=== PATIENT | female | born 1970 | race Caucasian/White ===

== ENCOUNTER 2017-07-26 13:44 | Outpatient (CLI) | payer OTHER ==
--- NOTE | 2017-07-27 12:00 | MMO ---
BILATERAL SCREENING MAMMOGRAM: Comparison: 15, 20-14, 05-31-12, 04-21-11 History: Annual screening exam. FINDINGS: This study is interpreted with the assistance of computer aided detection. Scattered fibroglandular changes of both breasts are present. There is asymmetric density which is in the upper and probably more central portion of the breast. There are no suspicious calcifications or other signs of malignancy. IMPRESSION: BIRADS category 0 - incomplete assessment. Further imaging required. In this case, focal spot views o f the area marked within the right breast to be followed by ultrasound if needed. POS: [facility]
== END 2017-07-26 13:45 | disposition home or self-care (01) ==
LOC: SCSMAMMO 13:44
PROVIDERS: ATTEND Obstetrics & Gynecology
DX: Z12.31 Encounter for screening mammogram for malignant neoplasm of breast (principal)
CPT/HCPCS: 77067

== ENCOUNTER 2017-08-19 14:14 | Outpatient (CLI) | payer OTHER | END 2017-08-19 14:15 | disposition home or self-care (01) | LOC: BICMAMMO 14:14 | PROVIDERS: ATTEND Family Medicine | DX: R92.2 Inconclusive mammogram (principal) | CPT/HCPCS: G0279 ==

== ENCOUNTER 2018-01-19 08:30 | Inpatient (IN) | payer OTHER ==
[2018-01-19 09:10] VITALS: BMI 36.3
[2018-01-31] MEDS ORDERED: Midazolam HCl 2 mg/2 ml Vial ONE (07:22)
[2018-01-31] MEDS ORDERED: Fentanyl 100 MCG/2 ML VIAL ONE ×3 (07:22→12:22)
[2018-01-31] MEDS ORDERED: CEFAZOLIN/Water 2 GM/20 ML SYRINGE ONE (07:25)
[2018-01-31] MEDS ORDERED: Fentanyl 100 MCG/2 ML VIAL IV PRN (08:17)
[2018-01-31] MEDS ORDERED: Promethazine HCl 25 MG/ML VIAL IM PRN ×3 (08:17→09:48)
[2018-01-31] MEDS ORDERED: Zolpidem Tartrate 5 MG TAB PO PRN ×2 (08:17→08:49)
[2018-01-31] MEDS ORDERED: HYDROcodone/Acetaminophen 10/325 mg Tablet PO PRN (08:17)
[2018-01-31] MEDS ORDERED: Ondansetron HCl/PF 4 MG/2 ML Vial IVP PRN ×3 (08:17→09:48)
[2018-01-31] MEDS ORDERED: traMADol HCl 50 MG TAB PO PRN ×2 (08:17)
[2018-01-31] MEDS ORDERED: diphenhydrAMINE 25 MG CAP PO PRN (08:49)
[2018-01-31] MEDS ORDERED: Acetaminophen 325 MG TAB PO PRN (08:49)
[2018-01-31] MEDS ORDERED: Fentanyl 100 MCG/2 ML VIAL SLOW IVP PRN (08:49)
[2018-01-31] MEDS ORDERED: Acetaminophen ER (8hr) 650 MG TAB PO PRN (08:51)
[2018-01-31] MEDS ORDERED: Non-Formulary Item 1 EACH (Multivitamin [Multi-Vitamin Daily] 1 TABLET) PO SCH (09:00)
[2018-01-31] MEDS ORDERED: Sodium Chloride 0.9% 100 ML ONE (09:14)
[2018-01-31] MEDS ORDERED: Vancomycin HCl 1.5 GM in Sodium Chloride 0.9% 250 ML 300 ML IVPB SCH (09:30)
[2018-01-31] MEDS ORDERED: Promethazine HCl 25 MG/ML VIAL SLOW IVP PRN (09:48)
[2018-01-31] MEDS ORDERED: Bupivacaine 0.25% HCL 30 ML VIAL ONE (10:06)
[2018-01-31] MEDS ORDERED: Ropivacaine 0.5% HCl/PF (150 MG/30 ML VIAL) ONE (10:06)
[2018-01-31] MEDS ORDERED: Meperidine HCl/PF 25 MG/ML VIAL ONE (11:09)
[2018-01-31] MEDS ORDERED: Morphine 4 MG/ML VIAL ONE (11:26)
--- NOTE | 2018-01-31 12:36 | OP ---
PREOPERATIVE DIAGNOSIS: Degenerative joint disease, right knee. POSTOPERATIVE DIAGNOSIS: Degenerative joint disease, right knee. SURGEON: Sam Diaz M.D. ELECTRONIC SECURITY SPECIALIST: Pan. BLOOD LOSS: Minimal. SPECIMEN: None. DRAINS: None. COMPLICATIONS: None. TOURNIQUET TIME: 60 minutes. TITLE OF PROCEDURE: Right total knee arthroplasty using a [place] Triathlon 5 femur, 5 tibia, 9 mm C S X3 polyethylene, and A29 patella. PROCEDURE IN DETAIL: After informed consent was obtained in the preoperative holding area. The tamanna ent was taken to the operative suite where general anesthesia was induced. Once adequate level of ge neral anesthesia was obtained, the patient was positioned and a well-padded tourniquet was placed shana und the right proximal thigh. The right lower extremity was then prepped and draped in the usual saad rile fashion. Prior to exsanguination, a time out was called and all members of the surgical team ag pipo upon site, surgeon, and patient. The extremity was then exsanguinated and the tourniquet was ra ised. A midline longitudinal incision was then made directly over the patella extending two fingerbr eadths above the superior pole of the patella and two fingerbreadths inferior to the inferior patella r pole of the patella. Deeper subcutaneous layers were dissected sharply and local bleeding was cont rolled with Bovie electrocautery. A quad tendon longitudinal split was then made sharply and a media n parapatellar arthrotomy was carried out both sharp and with Bovie electrocautery, carried down to o ne fingerbreadth medial to the tibial tubercle. The knee was then placed into flexion and the patell a was everted nicely, and a copious fat pad ectomy was performed allowing for greater exposure of the tibia. The computer-assisted distal femoral fiducial was then placed and pinned firmly, and the dis sindy femoral cutting guide was pinned firmly into place. The oscillating saw was then used to remove the appropriate amount of bone. The 4-in-1 cutting block was then placed on the distal femur and the oscillating saw was used to remove the appropriate amount of bone off of the anterior, posterior, an d chamfer cuts. After completion of bone cuts, the anterior cruciate ligament was resected sharply a nd the posterior cruciate ligament retractor was placed and the tibia was subluxed for better exposur e. Partial meniscectomies were carried out, and the tibial computer-assisted fiducial was pinned, an d the cutting guide was placed. Oscillating saw was then used to remove the bone with Hohmann retrac tors used to take care and protect the collateral ligaments. After the tibial resection was performe d, a laminar pipe line maintenance supervisor was placed in between the freshened bone cuts. The knee placed at 90 degrees a nd further bilateral meniscectomies were carried out, and the curved osteotome and curettage was used to remove any excess bone spurs in the posterior compartment. The trial femoral component, tibial b aseplate were placed with the appropriate polyethylene trial insert with an appropriate polyethylene spacer and patellar button. The knee was taken through full range of motion with flexion and extensi on from 0-90 degrees and patellar broach squarely in the trochlea without any squinting or subluxatio n noted. The knee was also stable to varus and valgus stressing at 0, 15, 45, and 90 degrees of flex ion. The drawer was negative. All trial components were then removed and the keel punch was used to provide the appropriate defect in the tibia with a mallet. The freshened bone cuts were copiously i rrigated with pulsatile lavage of about 1-1/2 liters to remove all excess debris. The freshened bone cuts were then dried and with suction and lap sponge. The knee was placed in flexion and retractors were placed to provide access to all bone cuts. Tobramycin impregnated methyl methacrylate cement w as then placed on the freshened bone cuts and implants which were malleted firmly into place. Curett age and [place] elevators were used to remove any excess bone cement. The knee was placed into full ex tension and the patellar button was placed under compression, and the cement was allowed to cure. On ce completed, the components were again taken through full range of motion and copious irrigation of the knee was carried out with another liter of normal saline. All components were inspected fully wi th full range of motion and varus and valgus stressing. There was no laxity noted and full extension was observed clinically. Primary closure was accomplished with #2 interrupted Vicryl stitch of the arthrotomy defect. This was oversewn with a #2 running Quill barbed stitch. The gravitational plate let system was then injected into the arthrotomy prior to closure. The subcutaneous layer was then c losed with a running 0 barbed Monocryl stitch and skin closure accomplished with a running subcuticul ar 3-0 Monocryl barbed Quill stitch and augmented with cement on the skin. Tourniquet was lowered. Good spontaneous return of distal pulses was noted clinically and a sterile dressing was applied to t he incision. The procedure was terminated without any complications. The patient was awakened in th e operative suite and the tourniquet was removed, and the patient was taken to the recovery room in s table condition.
[2018-01-31] MEDS ORDERED: Ketorolac Tromethamine 30 MG/ML VIAL ONE (12:57)
[2018-01-31] MEDS ORDERED: PROPOFOL 200 MG/20 ML VIAL ONE (12:57)
[2018-01-31] MEDS ORDERED: Lidocaine 1% PF 5 ML VIAL ONE (12:57)
[2018-01-31] MEDS ORDERED: Ondansetron HCl/PF 4 MG/2 ML Vial ONE (12:57)
[2018-01-31] MEDS: Ferrous Gluconate 324 MG TAB PO SCH ×2 (13:22→20:55)
[2018-01-31] MEDS: Aspirin 81 mg Enteric Coated Tablet PO SCH ×2 (13:22→20:55)
[2018-01-31] MEDS: Multivitamin W/ Minerals 1 TAB PO SCH (13:22)
[2018-01-31] MEDS: Senokot S 8.6-50 MG TAB PO SCH ×2 (13:23→20:57)
--- NOTE | 2018-01-31 13:29 | RAD ---
POSTOPERATIVE RIGHT KNEE RADIOGRAPH SERIES 2 VIEWS: Date: 01/31/18 INDICATION: Postoperative right knee evaluation. FINDINGS: There is a right knee arthroplasty without evidence of hardware complication. Expected postprocedural findings of the regional soft tissues are seen. IMPRESSION: Postoperative right knee without acute hardware complication. POS: [facility]
[2018-01-31] MEDS: Sodium Chloride 0.9% 1,000 ML IV SCH ×2 (15:32→18:58)
[2018-01-31] MEDS: HYDROcodone/Acetaminophen 10/325 mg Tablet PO PRN ×2 (15:41→20:54)
[2018-01-31] MEDS: CEFAZOLIN/Water 2 GM/20 ML SYRINGE SLOW IVP SCH (16:21)
[2018-02-01] MEDS: CEFAZOLIN/Water 2 GM/20 ML SYRINGE SLOW IVP SCH (00:03)
[2018-02-01] MEDS: HYDROcodone/Acetaminophen 10/325 mg Tablet PO PRN ×6 (00:18→21:33)
[2018-02-01] MEDS: Bupivacaine 0.5% 50 ML in Sodium Chloride 0.9% 50 ML NERVE BLCK SCH ×2 (04:26→21:20)
--- NOTE | 2018-02-01 04:30 | CON ---
DATE OF CONSULTATION: 01/31/2018 REASON FOR CONSULTATION: Medical management. HISTORY OF PRESENT ILLNESS: This patient is a 47-year-old female who is status post knee replacement today. The patient has a history of substantial obesity, which was ultimately treated with a gastric sleeve. She subsequently lost a significant amount of weight and was able to have her degenerative joint disease of the knee addressed with total knee replacement today. Currently, the patient reports that she is doing extremely well and she has no complaints. She has no pain in the knee as the block is still present. PAST MEDICAL HISTORY: Only notable for the above-mentioned obesity, gastroesophageal reflux. PAST SURGICAL HISTORY: Gastric sleeve, BTL, left foot surgery. MEDICATIONS: The patient takes a supplement called Thrive. ALLERGIES: NSAIDs. FAMILY HISTORY: Noncontributory. SOCIAL HISTORY: Patient is , has a 22-year-old daughter with spina bifida. PHYSICAL EXAMINATION: VITAL SIGNS: BP 114/63, pulse 87, O2 saturation 96%, temperature 98.1. GENERAL APPEARANCE: Age-appropriate female. She was in no distress. She is awake, alert, oriented, pleasant, cooperative. HEENT: PERRL. No active lesions. NECK: Supple and symmetric. CARDIOVASCULAR: Regular rate and rhythm without murmurs, gallops or rubs. LUNGS: Clear to auscultation bilaterally. Good chest wall expansion. Good air exchange. ABDOMEN: Soft, flat, nontender, nondistended, positive bowel sounds. EXTREMITIES: Warm and dry with good capillary refill, no edema. LABORATORY DATA: White count 11.2, hemoglobin 13.1, platelets 368,000. BUN 10 , creatinine 0.68, glucose 80. IMPRESSION AND PLAN: 1. Postop knee replacement. We will continue with post-op pain management as necessary. 2. History of reflux. We will continue with the patient's usual home medications with PPI. We will continue to manage the patient medically, although she appears to be generally stable. I appreciate the opportunity to work this patient. JOSE CARLOS
[2018-02-01 04:47] LABS: Hemoglobin 10.9 g/dL (12.0-16.0)
[2018-02-01 04:55] LABS: Mean Corpuscular HGB CONC 32.9 g/dL (32.0-36.0); Mean Corpuscular Hemoglobin 27.7 pg (27.0-31.0); Mean Corpuscular Volume 84.2 fL (78.0-98.0); Mean Platelet Volume 7.1 fL (7.4-10.4); Platelet Count 310 thou/uL (130-400); RBC Distribution Width 12.5 % (11.5-14.5); Red Blood Cell (RBC) Count 3.94 mill/uL (4.20-5.40); White Blood Cell (WBC) Count 12.4 thou/uL (4.8-10.8)
[2018-02-01] MEDS: Sodium Chloride 0.9% 1,000 ML IV SCH ×2 (05:01→14:44)
[2018-02-01] MEDS: Aspirin 81 mg Enteric Coated Tablet PO SCH ×2 (08:24→21:02)
[2018-02-01] MEDS: Senokot S 8.6-50 MG TAB PO SCH ×2 (08:25→21:03)
[2018-02-01] MEDS: Ferrous Gluconate 324 MG TAB PO SCH ×2 (08:25→21:02)
[2018-02-01] MEDS: Multivitamin W/ Minerals 1 TAB PO SCH (08:25)
--- NOTE | 2018-02-01 09:37 | PRG ---
DATE OF SERVICE: 02/01/2018 SUBJECTIVE: Gissel is a 47-year-old female, postop day #1 from right total knee arthroplasty. She is comfortable this morning. She has no complaints. She has a little bit of amplification of discomfo rt this morning and rates it about a 7 and it is time for her [place] anyway. She is tolerating a regu lar diet. OBJECTIVE: Temperature 98.2, pulse 75, respiratory rate is 18, O2 saturation is 92% on room air, blo od pressure is 102/71. She is alert and oriented to person, place, time, and situation, appropriatel y conversant with examiner. Neurovascularly intact. She has a dense block on the right leg, but the re is no strike through at the incision. Hemoglobin and hematocrit 10.9 and 33.2. ASSESSMENT: A 47-year-old female, 1. Postoperative day #1 right total knee arthroplasty, doing well. 2. Mild postoperative asymptomatic hemorrhagic anemia. PLAN: Continue current care. Probable discharge tomorrow.
[2018-02-01] MEDS: traMADol HCl 50 MG TAB PO PRN (16:16)
[2018-02-02] MEDS: Sodium Chloride 0.9% 1,000 ML IV SCH ×2 (01:06→20:38)
[2018-02-02] MEDS: HYDROcodone/Acetaminophen 10/325 mg Tablet PO PRN ×3 (01:53→10:41)
[2018-02-02 04:53] LABS: Hemoglobin 10.8 g/dL (12.0-16.0); Mean Corpuscular HGB CONC 33.1 g/dL (32.0-36.0); Mean Corpuscular Hemoglobin 27.9 pg (27.0-31.0); Mean Corpuscular Volume 84.2 fL (78.0-98.0); Platelet Count 287 thou/uL (130-400); RBC Distribution Width 12.5 % (11.5-14.5); Red Blood Cell (RBC) Count 3.86 mill/uL (4.20-5.40); White Blood Cell (WBC) Count 11.8 thou/uL (4.8-10.8)
[2018-02-02] MEDS: Aspirin 81 mg Enteric Coated Tablet PO SCH (09:12)
[2018-02-02] MEDS: Senokot S 8.6-50 MG TAB PO SCH (09:12)
[2018-02-02] MEDS: Ferrous Gluconate 324 MG TAB PO SCH (09:12)
[2018-02-02] MEDS: Multivitamin W/ Minerals 1 TAB PO SCH (09:12)
[2018-02-02 11:43] VITALS: BP 137/83; TEMP 97.7
[2018-02-02] MEDS: traMADol HCl 50 MG TAB PO PRN (14:13)
== END 2018-02-02 14:30 | disposition home or self-care (01) | DRG 470 ==
LOC: SURG A 01-31 06:24 → SJJU 01-31 12:21
PROVIDERS: ADMIT Orthopaedic Surgery; ATTEND Orthopaedic Surgery
PROC: 0SRC0J9 Replacement of Right Knee Joint with Synthetic Substitute, Cemented, Open Approach (ICD-10-PCS; principal; 2018-01-31)
DX: M17.11 Unilateral primary osteoarthritis, right knee (principal); Z93.1 Gastrostomy status; E66.9 Obesity, unspecified; Z68.36 Body mass index [BMI] 36.0-36.9, adult; D64.9 Anemia, unspecified; K21.9 Gastro-esophageal reflux disease without esophagitis
CPT/HCPCS: 36415; 80048; 85025; 85027; 85610; 86850; 86900; 86901; A4216; C1713; C1776; G8978-GP-CL; G8979-GP-CJ; J1885; J2001; J2175; J2250; J2270; J2405; J2704; J2795; J3010; J3370; J3490; J7050; S0020

== ENCOUNTER 2018-01-19 08:52 | Outpatient (CLI) | payer OTHER ==
--- NOTE | 2018-01-19 11:15 | RAD ---
CHEST TWO VIEWS: HISTORY: Preoperative radiograph. COMPARISON: None. FINDINGS: Two views of the chest show normal sized cardiomediastinal silhouette. There is no evidence of consol idation, mass, or pleural effusion. The bones are unremarkable. IMPRESSION: No evidence of acute cardiopulmonary disease. POS: [facility]
== END 2018-01-19 08:53 | disposition home or self-care (01) ==
LOC: LABBT 08:52
PROVIDERS: ATTEND Orthopaedic Surgery
DX: Z01.818 Encounter for other preprocedural examination (principal); M17.11 Unilateral primary osteoarthritis, right knee
CPT/HCPCS: 71046; 87081; 93005; 93010

== ENCOUNTER 2018-01-30 13:30 | Outpatient (CLI) | payer OTHER ==
[2018-01-30 14:45] LABS: #Basophils 0.1 thou/uL (0.0-0.2); #Eosinphils 0.2 thou/uL (0.0-0.7); #Lymphocytes 2.9 thou/uL (1.20-3.40); #Monocytes 0.7 thou/uL (0.11-0.59); #Neutrophils 7.4 thou/uL (1.40-6.50); %Basophils 0.6 % (0.0-1.0); %Eosinophils 1.7 % (0.0-10.0); %Lymphocytes 26.1 % (21.0-51.0); %Monocytes 6.1 % (0.0-10.0); %Neutrophils 65.6 % (42.0-75.0); Hemoglobin 13.1 g/dL (12.0-16.0); Mean Corpuscular HGB CONC 32.7 g/dL (32.0-36.0); Mean Corpuscular Hemoglobin 27.4 pg (27.0-31.0); Mean Corpuscular Volume 83.9 fL (78.0-98.0); Platelet Count 368 thou/uL (130-400); RBC Distribution Width 12.4 % (11.5-14.5); Red Blood Cell (RBC) Count 4.78 mill/uL (4.20-5.40); White Blood Cell (WBC) Count 11.2 thou/uL (4.8-10.8)
[2018-01-30 14:58] LABS: Prothrombin Time 12.8 SEC (12.0-14.7)
[2018-01-30 15:04] LABS: Anion Gap 13 mmol/L (10-20); BUN (Urea Nitrogen) 10 mg/dL (7.0-18.7); Calc. Creatinine Clearance 0 mL/min (70-130); Calcium 9.4 mg/dL (7.8-10.44); Carbon Dioxide 23 mmol/L (22-29); Chloride 106 mmol/L (98-107); Estimated GFR-MDRD Greater than 90; Glucose 80 mg/dL (70-105); Potassium 4.2 mmol/L (3.5-5.1); Sodium 138 mmol/L (136-145)
== END 2018-01-30 13:31 | disposition home or self-care (01) ==
LOC: LABBT 13:30
PROVIDERS: ATTEND Orthopaedic Surgery
DX: Z01.812 Encounter for preprocedural laboratory examination (principal); M17.11 Unilateral primary osteoarthritis, right knee
CPT/HCPCS: 80048; 85025; 85610; 86850; 86900; 86901

== ENCOUNTER 2019-06-06 06:54 | Outpatient (CLI) | payer OTHER ==
[2019-06-06 15:34] LABS: #Eosinphils 0.2 thou/uL (0.0-0.7); #Lymphocytes 3.3 thou/uL (1.20-3.40); #Monocytes 0.9 thou/uL (0.11-0.59); #Neutrophils 7.5 thou/uL (1.40-6.50); %Basophils 0.4 % (0.0-1.0); %Eosinophils 1.9 % (0.0-10.0); %Lymphocytes 27.8 % (21.0-51.0); %Monocytes 7.4 % (0.0-10.0); %Neutrophils 62.5 % (42.0-75.0); Hemoglobin 14.6 g/dL (12.0-16.0); Mean Corpuscular HGB CONC 32.1 g/dL (32.0-36.0); Mean Corpuscular Hemoglobin 27.4 pg (27.0-31.0); Mean Corpuscular Volume 85.2 fL (78.0-98.0); Mean Platelet Volume 7.6 fL (7.4-10.4); Platelet Count 348 thou/uL (130-400); RBC Distribution Width 12.6 % (11.5-14.5); Red Blood Cell (RBC) Count 5.34 mill/uL (4.20-5.40)
[2019-06-06 15:43] LABS: INR-International Normal Ratio 0.9; Prothrombin Time 12.4 SEC (12.0-14.7)
[2019-06-06 15:57] LABS: Anion Gap 10 mmol/L (10-20); BUN (Urea Nitrogen) 9 mg/dL (9.8-20.1); Calc. Creatinine Clearance 0 mL/min (70-130); Calcium 9.7 mg/dL (7.8-10.44); Carbon Dioxide 28 mmol/L (22-29); Chloride 105 mmol/L (98-107); Estimated GFR-MDRD 78; Glucose 104 mg/dL (70-105); Potassium 4.1 mmol/L (3.5-5.1); Sodium 139 mmol/L (136-145)
[2019-06-06 16:10] LABS: Bacteria/HPF None Seen HPF (None Seen); Bilirubin Negative (Negative); Blood, Urine Negative (Negative); Clarity Clear (Clear); Glucose, Urine (Dipstick) Normal (Negative); Leukocyte Negative Leu/uL (Negative); Nitrite Negative (Negative); Protein, Urine (Dipstick) 10 mg/dL (Neg-Trace); Squamous Epithelial 0-3 HPF (0-3); Urobilinogen Normal mg/dL (Less than 2); WBC/HPF 0-3 HPF (0-3)
== END 2019-06-06 06:55 | disposition home or self-care (01) ==
LOC: LABBT 06:54
PROVIDERS: ATTEND Orthopaedic Surgery
DX: Z01.818 Encounter for other preprocedural examination (principal); M17.12 Unilateral primary osteoarthritis, left knee
CPT/HCPCS: 80048; 81001; 85025; 85610; 93005; 93010

== ENCOUNTER 2019-06-06 14:30 | Inpatient (IN) | payer OTHER ==
[2019-06-06 14:52] VITALS: BMI 37.1
[2019-06-12] MEDS ORDERED: Tranexamic Acid 1,000 MG/10 ML VIAL ONE (08:42)
[2019-06-12] MEDS ORDERED: Sodium Chloride 0.9% 100 ML ONE (08:42)
[2019-06-12] MEDS ORDERED: Vancomycin 1.5 GRAM/300 ML BAG 1.5 GM in Premix Bag 1 BAG IVPB SCH (09:00)
[2019-06-12] MEDS ORDERED: Midazolam HCl 2 mg/2 ml Vial ONE (09:05)
[2019-06-12] MEDS ORDERED: Fentanyl 100 MCG/2 ML VIAL ONE ×5 (09:05→14:07)
[2019-06-12] MEDS ORDERED: HYDROcodone/Acetaminophen 10/325 mg Tablet PO PRN ×2 (09:11)
[2019-06-12] MEDS ORDERED: Zolpidem Tartrate 5 MG TAB PO PRN ×2 (09:11→09:17)
[2019-06-12] MEDS ORDERED: Fentanyl 100 MCG/2 ML VIAL SLOW IVP PRN ×2 (09:11)
[2019-06-12] MEDS ORDERED: Acetaminophen 325 MG TAB PO PRN (09:11)
[2019-06-12] MEDS ORDERED: Promethazine HCl 25 MG/ML VIAL IM PRN ×3 (09:11→11:41)
[2019-06-12] MEDS ORDERED: diphenhydrAMINE 25 MG CAP PO PRN (09:11)
[2019-06-12] MEDS ORDERED: Acetaminophen ER (8hr) 650 MG TAB PO PRN (09:12)
[2019-06-12] MEDS ORDERED: HYDROcodone/Acetaminophen 5/325 mg Tablet PO PRN (09:17)
[2019-06-12] MEDS ORDERED: Ondansetron PF 4 MG/2 ML Vial IVP PRN (09:17)
[2019-06-12] MEDS ORDERED: Ropivacaine HCl/PF 250 ML in Premix Bag 1 BAG NERVE BLCK SCH (09:17)
[2019-06-12] MEDS ORDERED: traMADol HCl 50 MG TAB PO PRN ×2 (09:17)
[2019-06-12] MEDS ORDERED: Fentanyl 100 MCG/2 ML VIAL IV PRN (09:17)
[2019-06-12] MEDS ORDERED: PROPOFOL 200 MG/20 ML VIAL ONE (10:13)
[2019-06-12] MEDS ORDERED: Ondansetron PF 4 MG/2 ML Vial ONE (10:13)
[2019-06-12] MEDS ORDERED: Ropivacaine 0.2% HCl/PF (40 MG/20 ML VIAL) ONE (10:13)
[2019-06-12] MEDS ORDERED: Ropivacaine 0.5% HCl/PF (150 MG/30 ML VIAL) ONE (10:13)
[2019-06-12] MEDS ORDERED: Bupivacaine HCl 0.5%/Epinephrine 1:200,000/PF 30 ml Vial ONE (10:13)
[2019-06-12] MEDS ORDERED: Promethazine HCl 25 MG/ML VIAL SLOW IVP PRN (11:41)
[2019-06-12] MEDS ORDERED: Ondansetron HCl/PF 4 MG/2 ML Vial IVP PRN (11:41)
[2019-06-12] MEDS ORDERED: Ketorolac Tromethamine 30 MG/ML VIAL IVP SCH (12:00)
[2019-06-12] MEDS ORDERED: Acetaminophen 1,000 MG in Premix Bag 1 BAG IVPB ONE (13:15)
--- NOTE | 2019-06-12 13:42 | RAD ---
RADIOGRAPH LEFT KNEE 2 VIEWS: DATE: 06/12/2019 HISTORY: 49-year-old female with chronic left knee pain status post surgery FINDINGS: Resurfacing changes of articular surfaces of distal femur, patella, and tibial plateau. Metallic pros theses cover the resurfaced articular surfaces of distal femur and tibial plateau. Subcutaneous emphysema in the anterior soft tissues of the thigh and knee indicate recent status of surgery. IMPRESSION: Very recently status post total left knee replacement arthroplasty.
[2019-06-12] MEDS: HYDROcodone/Acetaminophen 5/325 mg Tablet PO PRN ×2 (16:16→20:03)
[2019-06-12] MEDS: Ondansetron PF 4 MG/2 ML Vial IVP PRN (17:44)
[2019-06-12] MEDS: CEFAZOLIN 2 GM in Premix Bag 1 BAG IVPB SCH (17:44)
[2019-06-12] MEDS: Sodium Chloride 0.9% 1,000 ML IV SCH ×2 (18:28→20:06)
[2019-06-12] MEDS: Aspirin 81 mg Enteric Coated Tablet PO SCH (20:02)
[2019-06-12] MEDS ORDERED: Famotidine/PF 20 mg/2ml Vial SLOW IVP SCH (21:00)
--- NOTE | 2019-06-12 23:13 | CON ---
DATE OF CONSULTATION: PRIMARY CARE PHYSICIAN: Dr. Martin Pat. REASON FOR CONSULTATION: Medical management. CHIEF COMPLAINT: Mild left knee pain. HISTORY OF PRESENT ILLNESS: Ms. Restrepo is a pleasant 49-year-old woman, who is status post a left knee replacement, who has been referred for medical management. The patient states that overall she is feeling well except for mild discomfort in the knee. She states it is tolerable. She states she has otherwise been feeling well and without any major complaints. Denies having any nausea or vomiting. No chest pain, palpitations, or shortness of breath. No headaches or dizziness. She reports having history of a gastric sleeve and states this contributes to long-standing diarrhea. Has not had a bowel movement today. Denies having any issues with blood in her stools or abdominal pain or cramping. Overall, she is feeling well and again without any complaints. PAST MEDICAL HISTORY: 1. Osteoarthritis. 2. Anxiety. 3. Varicose veins. 4. Obesity. 5. GERD. PAST SURGICAL HISTORY: 1. Cholecystectomy. 2. Gastric sleeve in 2013. 3. . 4. Foot surgery. 5. Right total knee replacement. 6. Left total knee replacement. FAMILY HISTORY: Noncontributory. SOCIAL HISTORY: The patient denies any tobacco use, alcohol consumption, or illicit drug use. ALLERGIES: NSAIDS. CURRENT MEDICATIONS: 1. Acetaminophen. 2. Nexium. 3. Multivitamin. PHYSICAL EXAMINATION: GENERAL: The patient appears well developed, well nourished, is in no acute distress. VITAL SIGNS: Temperature 98.3, pulse 80, respirations 16, O2 saturation 99% on room air, blood pressure . HEENT: Normocephalic and atraumatic. Pupils are equal, round, and reactive to light. Sclerae are without icterus. Oropharynx is clear. NECK: Supple without lymphadenopathy. LUNGS: Clear to auscultation bilaterally without any wheezes, rales, or rhonchi. CARDIAC: Regular rate and rhythm without audible murmurs, rubs, or gallops. ABDOMEN: Soft, nontender, nondistended. Normoactive bowel sounds present. EXTREMITIES: No lower leg swelling. Pedal pulses present and equal bilaterally. No evidence of edema NEUROLOGIC: Alert and oriented x3. SKIN: Without rash or jaundice. LABORATORY DATA: Obtained on June 06, 2019 as part of preoperative workup. White blood count was 12, hemoglobin 14.6, hematocrit 45.5, platelets 348, neutrophils 62.5%. Sodium 139, potassium 4.1, BUN 9, creatinine 0.78, GFR 78, calcium 9.7. Urinalysis done at that time as well showed 10 ketones, 4 to 6 red blood cells, otherwise unremarkable. IMAGING DATA: X-ray of the left knee on June 12, 2019 showed very recently status post total left knee replacement arthroplasty. IMPRESSION AND PLAN: Ms. Restrepo is a very pleasant 49-year-old woman, who is status post left total knee replacement, who has been referred for medical management of the following. 1. Gastroesophageal reflux disease. The patient is on Nexium at home, which has been continued. 2. Chronic diarrhea. The patient states it is intermittent and manageable. No diarrhea at present. 3. Deep venous thrombosis prophylaxis. Mechanical SCDs in place. 4. Code status full. Surrogate decision maker is her , Tony Restrepo. We will obtain laboratory studies to assess current renal and liver function. The patient is asymptomatic at present without any complaints. Pain is under control from left total knee replacement done earlier today. We will continue to follow this patient with you. Thank you for the consultation. Case was discussed with Dr. Coburn who agrees with plan of care as described above. Job ID: [id number]
[2019-06-13] MEDS: CEFAZOLIN 2 GM in Premix Bag 1 BAG IVPB SCH (00:42)
[2019-06-13] MEDS: HYDROcodone/Acetaminophen 5/325 mg Tablet PO PRN ×6 (00:44→21:06)
[2019-06-13 05:36] LABS: #Lymphocytes 1.7 thou/uL (1.20-3.40); #Monocytes 1.3 thou/uL (0.11-0.59); #Neutrophils 11.1 thou/uL (1.40-6.50); %Basophils 0.3 % (0.0-1.0); %Eosinophils 0.2 % (0.0-10.0); %Lymphocytes 12.2 % (21.0-51.0); %Monocytes 8.9 % (0.0-10.0); %Neutrophils 78.5 % (42.0-75.0); Hemoglobin 12.4 g/dL (12.0-16.0); Mean Corpuscular HGB CONC 32.5 g/dL (32.0-36.0); Mean Corpuscular Hemoglobin 27.4 pg (27.0-31.0); Mean Corpuscular Volume 84.4 fL (78.0-98.0); Mean Platelet Volume 7.8 fL (7.4-10.4); Platelet Count 282 thou/uL (130-400); RBC Distribution Width 12.5 % (11.5-14.5); Red Blood Cell (RBC) Count 4.53 mill/uL (4.20-5.40); White Blood Cell (WBC) Count 14.2 thou/uL (4.8-10.8)
[2019-06-13 05:38] LABS: Hemoglobin 12.4 g/dL (12.0-16.0); Mean Corpuscular HGB CONC 32.8 g/dL (32.0-36.0); Mean Corpuscular Hemoglobin 27.7 pg (27.0-31.0); Mean Corpuscular Volume 84.5 fL (78.0-98.0); Mean Platelet Volume 7.5 fL (7.4-10.4); Platelet Count 278 thou/uL (130-400); RBC Distribution Width 12.4 % (11.5-14.5); Red Blood Cell (RBC) Count 4.48 mill/uL (4.20-5.40); White Blood Cell (WBC) Count 14.6 thou/uL (4.8-10.8)
[2019-06-13] MEDS: Ondansetron PF 4 MG/2 ML Vial IVP PRN ×2 (05:43→12:54)
[2019-06-13 05:52] LABS: ALT (SGPT) 27 U/L (8-55); AST (SGOT) 30 U/L (5-34); Albumin 3.3 g/dL (3.5-5.0); Alkaline Phosphatase 96 U/L (40-110); Anion Gap 9 mmol/L (10-20); BUN (Urea Nitrogen) 4 mg/dL (9.8-20.1); Bilirubin, Total 0.6 mg/dL (0.2-1.2); Calc. Creatinine Clearance 186 mL/min (70-130); Calcium 8.2 mg/dL (7.8-10.44); Carbon Dioxide 25 mmol/L (22-29); Chloride 105 mmol/L (98-107); Estimated GFR-MDRD Greater than 90; Globulin 2.5 g/dL (2.4-3.5); Glucose 113 mg/dL (70-105); Potassium 3.6 mmol/L (3.5-5.1); Protein, Total 5.8 g/dL (6.0-8.3); Sodium 135 mmol/L (136-145)
[2019-06-13] MEDS: Sodium Chloride 0.9% 1,000 ML IV SCH ×3 (06:45→19:55)
[2019-06-13] MEDS: Ferrous Gluconate 324 MG TAB PO SCH ×2 (08:32→16:51)
[2019-06-13] MEDS: Multivitamin W/ Minerals 1 TAB PO SCH (08:33)
[2019-06-13] MEDS: Aspirin 81 mg Enteric Coated Tablet PO SCH ×2 (08:33→19:52)
[2019-06-13] MEDS: Senokot S 8.6-50 MG TAB PO SCH ×2 (08:33→19:52)
[2019-06-13] MEDS ORDERED: Non-Formulary Item 1 EACH (Multivitamin [Multi-Vitamin Daily] 1 TABLET) PO SCH (09:00)
--- NOTE | 2019-06-13 09:56 | PRG ---
DATE OF SERVICE: 06/13/2019 SUBJECTIVE: Gissel is a 49-year-old female postop day 1 from left total knee arthroplasty. This is her second arthroplasty and she is doing very well. Pain is controlled. She is requesting discharge home today. OBJECTIVE: VITAL SIGNS: Temperature 98.4, pulse 84, respiratory rate , blood pressure 144/84. GENERAL: She is alert and oriented to person, place, time, and situation. Responsive and appropriate with examiner. Grossly nonfocal. EXTREMITIES: Incision is clean. No strike through. She is neurovascularly intact in the left lower extremity. LABORATORY DATA: Hemoglobin and hematocrit of 12.4 and 37.9. IMPRESSION: 49-year-old female postop day 1 left total knee arthroplasty, doing well. This is her second joint. PLAN: 1. We will go ahead and place an On-Q pump. 2. Consider discharge to home this afternoon if she is still continuing with good progress. Job ID: [id number]
[2019-06-13] MEDS ORDERED: Ropivacaine 0.2% 550 ML 550 ML NERVE BLCK SCH (10:46)
--- NOTE | 2019-06-13 10:55 | OP ---
DATE OF PROCEDURE: 06/12/2019 Dictated by Ashok Duke PA-C, for Sam Diaz MD. PREOPERATIVE DIAGNOSIS: End-stage tricompartmental osteoarthritis, left knee with degenerative genu varum. POSTOPERATIVE DIAGNOSIS: End-stage tricompartmental osteoarthritis, left knee with degenerative genu varum. PROCEDURE: Cemented cruciate-sparing computer-assisted navigated left total knee arthroplasty. SURGEON: Sam Diaz MD. GARNETT ROOM WORKER: Ashok Duke PA-C. ANESTHESIA: General via LMA augmented with indwelling adductor canal block and single-shot sciatic block. COMPONENTS USED: [employer] Triathlon cemented size 5 cruciate-sparing femoral component with a size 5 primary cemented tibial base plate, 9 mm polyethylene fixed bearing insert, and A32 patella button. FINDINGS: End-stage severe degenerative tricompartmental disease, [id number] arthrosis, periarticular osteophyte formation, large serous effusion, hypertrophic synovium, and changes consistent with degenerative genu varum. DRAINS: None. SPECIMENS: None. COMPLICATIONS: None. COUNTS: Correct. INPUT: 1500 mL crystalloid. OUTPUT: 250 mL clear yellow urine. INDICATION FOR PROCEDURE: Gissel is a 49-year-old white female, who has had progressive left knee pain, and problems with standing and walking. She had failed conservative management for the last 5 to 7 years. She has elected to proceed with total knee arthroplasty with degenerative genu varum Job ID: [id number]
[2019-06-13] MEDS ORDERED: Ropivacaine HCl/PF 250 ML in Premix Bag 1 BAG NERVE BLCK SCH (11:45)
--- NOTE | 2019-06-13 18:14 | PDOC.HOSPP ---
- Subjective Encounter Date: 06/13/19 Encounter Time: 10:00 Subjective: Pt seen for followup re: GERD. Feels well, no complaints today. - Objective Vital Signs & Weight: Vital Signs (12 hours) Temp Pulse Resp BP Pulse Ox 06/13/19 15:57 98.5 F 87 20 147/84 H 94 L 06/13/19 13:00 98.5 F 76 18 164/91 H 97 06/13/19 09:00 18 06/13/19 08:00 97 Weight Admit Weight 230 lb Weight 230 lb I&O: 06/12/19 06/13/19 06/14/19 06:59 06:59 06:59 Intake Total 1900 Output Total 1300 Balance 600 Result Diagrams: 06/13/19 05:05 06/13/19 05:05 Additional Labs: Labs and MARs reviewed by tx Hospitalist ROS - Review of Systems Cardiovascular: denies: chest pain, palpitations, orthopnea, paroxysmal noc. dyspnea, edema, light headedness Gastrointestinal: denies: nausea, vomiting, abdominal pain, diarrhea, constipation, melena, hematochezia - Medication Medications: Active Medications Generic Name Dose Route Start Last Admin Trade Name Freq PRN Reason Stop Dose Admin Hydrocodone Bitart/Acetaminophen 2 tab 06/12/19 09:17 06/13/19 16:51 [place] 5/325 PO 2 tab Q4H PRN Administration For Moderate Pain 4-6 Aspirin 81 mg 06/12/19 21:00 06/13/19 08:33 Ecotrin PO 81 mg BID NYA Administration Ferrous Gluconate 324 mg 06/13/19 08:00 06/13/19 16:51 Fergon PO 324 mg BID-WM NYA Administration Sodium Chloride 1,000 mls @ 100 mls/hr 06/12/19 09:15 06/13/19 17:16 Normal Saline 0.9% IV Not Given .Q10H NYA Ropivacaine 250 ml/ Device 250 mls @ 0 mls/hr 06/13/19 11:45 06/13/19 14:17 NERVE BLCK 06/15/19 11:46 250 mls INF NYA Administration As Directed Iron/Minerals/Multivitamins 1 tab 06/13/19 09:00 06/13/19 08:33 Theragran M PO 1 tab DAILY NYA Administration Ondansetron HCl 4 mg 06/12/19 09:11 11/20/19 12:54 Zofran IVP 4 mg Q6H PRN Administration Nausea/Vomiting Senna/Docusate Sodium 2 tab 06/13/19 09:00 06/13/19 08:33 Senokot S PO 2 tab BID NYA Administration - Exam General - other findings: Obese Eye: anicteric sclera ENT: negative: moist mucosa Neck: supple, no JVD Heart: RRR Respiratory: CTAB, no rales Gastrointestinal: soft, non-tender Extremities: no clubbing Musculoskeletal - other findings: s/p L knee surgery Psychiatric: normal affect, normal behavior Hosp A/P (1) GERD (gastroesophageal reflux disease) Code(s): K21.9 - GASTRO-ESOPHAGEAL REFLUX DISEASE WITHOUT ESOPHAGITIS Status: Chronic (2) Arthritis Code(s): M19.90 - UNSPECIFIED OSTEOARTHRITIS, UNSPECIFIED SITE Status: Chronic - Plan PT/OT, out of bed/ambulate Continue PPI. s/p L knee surgery. Pain management and DVT prophylaxis per orthopedic surgery service.
[2019-06-14] MEDS: HYDROcodone/Acetaminophen 5/325 mg Tablet PO PRN ×3 (01:12→09:26)
[2019-06-14 04:17] LABS: Mean Corpuscular HGB CONC 32.5 g/dL (32.0-36.0); Mean Corpuscular Hemoglobin 27.3 pg (27.0-31.0); Mean Corpuscular Volume 84.3 fL (78.0-98.0); Mean Platelet Volume 7.3 fL (7.4-10.4); Platelet Count 287 thou/uL (130-400); RBC Distribution Width 12.5 % (11.5-14.5); Red Blood Cell (RBC) Count 4.38 mill/uL (4.20-5.40); White Blood Cell (WBC) Count 15.1 thou/uL (4.8-10.8)
[2019-06-14] MEDS: Multivitamin W/ Minerals 1 TAB PO SCH (08:21)
[2019-06-14] MEDS: Aspirin 81 mg Enteric Coated Tablet PO SCH (08:21)
[2019-06-14] MEDS: Senokot S 8.6-50 MG TAB PO SCH (08:21)
[2019-06-14] MEDS: Ferrous Gluconate 324 MG TAB PO SCH (08:21)
[2019-06-14] MEDS: Sodium Chloride 0.9% 1,000 ML IV SCH (11:04)
[2019-06-14 11:59] VITALS: BP 158/95; TEMP 98.7
== END 2019-06-14 13:05 | disposition home or self-care (01) | DRG 470 ==
LOC: SJJU 06-12 07:32
PROVIDERS: ADMIT Orthopaedic Surgery; ATTEND Orthopaedic Surgery
PROC: 0SRD0J9 Replacement of Left Knee Joint with Synthetic Substitute, Cemented, Open Approach (ICD-10-PCS; principal; 2019-06-12)
PROC: 8E0YXBZ Computer Assisted Procedure of Lower Extremity (ICD-10-PCS; 2019-06-12)
DX: M17.12 Unilateral primary osteoarthritis, left knee (principal); M21.162 Varus deformity, not elsewhere classified, left knee; F41.9 Anxiety disorder, unspecified; E66.9 Obesity, unspecified; K21.9 Gastro-esophageal reflux disease without esophagitis; Z96.651 Presence of right artificial knee joint; K52.9 Noninfective gastroenteritis and colitis, unspecified; Z68.37 Body mass index [BMI] 37.0-37.9, adult; Z90.49 Acquired absence of other specified parts of digestive tract; Z98.84 Bariatric surgery status; Z79.899 Other long term (current) drug therapy; Z88.5 Allergy status to narcotic agent; Z88.8 Allergy status to other drugs, medicaments and biological substances
CPT/HCPCS: 36415; 80053; 85027; A4306; C1713; C1776; J0131; J0670; J0690; J2250; J2405; J2704; J2795; J3010; J3490

== ENCOUNTER 2020-04-14 10:39 | Outpatient (CLI) | payer OTHER ==
--- NOTE | 2020-04-14 11:43 | MMO ---
Bilateral MAMMO Bilat Screen DDI+ASIF. CLINICAL HISTORY: Patient is 50 years old and is seen for screening. The patient has no family history of breast cancer. The patient has no personal history of cancer. VIEWS: The views performed were: bilateral craniocaudal with tomosynthesis and bilateral mediolateral oblique with tomosynthesis. FILMS COMPARED: The present examination has been compared to prior imaging studies performed at [facility] on 08/19/2017, and at [facility] on 10/11/2013, 01/21/2015 and 07/26/2017. This study has been interpreted with the assistance of computer-aided detection. MAMMOGRAM FINDINGS: There are scattered fibroglandular densities. There are no suspicious masses, suspicious calcifications, or new areas of architectural distortion. IMPRESSION: THERE IS NO MAMMOGRAPHIC EVIDENCE OF MALIGNANCY. A ROUTINE FOLLOW-UP MAMMOGRAM IN 1 YEAR IS RECOMMENDED. THE RESULTS OF THIS EXAM WERE SENT TO THE PATIENT. ACR BI-RADS Category 2 - Benign finding MAMMOGRAPHY NOTE: 1. A negative mammogram report should not delay a biopsy if a dominant of clinically suspicious mass is present. 2. Approximately 10% to 15% of breast cancers are not detected by mammography. 3. Adenosis and dense breasts may obscure an underlying neoplasm. Reported by: SUMIT CLEMENS MD Electonically Signed: [id number]
== END 2020-04-14 10:40 | disposition home or self-care (01) ==
LOC: BICMAMMO 10:39
PROVIDERS: ATTEND Obstetrics & Gynecology
DX: Z12.31 Encounter for screening mammogram for malignant neoplasm of breast (principal)
CPT/HCPCS: 77063; 77067